=== PATIENT | female | born 1960 | race Caucasian/White ===

== ENCOUNTER 2025-03-22 12:42 | Emergency (ER) | payer MEDICARE, BC ==
[2025-03-22] MEDS: Ketorolac 30 MG/ML SDV IM ONE (13:02)
== END 2025-03-22 14:53 | disposition home or self-care (01) ==
LOC: MW.ED 12:42
DX: S82.201A Unspecified fracture of shaft of right tibia, initial encounter for closed fracture (principal); S82.401A Unspecified fracture of shaft of right fibula, initial encounter for closed fracture; Z75.3 Unavailability and inaccessibility of health-care facilities; X58.XXXA Exposure to other specified factors, initial encounter
CPT/HCPCS: 29505; 73590; 73600; 73620; 73700; 96372; 99284; J1885

== ENCOUNTER 2025-03-24 09:18 | Day surgery (SDC) | payer BC, MEDICARE ==
[~2025-03-24 09:18] MED LIST: Albuterol 0.083% 2.5 MG/3 ML Neb Soln NEB PRN; HYDROmorphone 1 MG/ML Syringe IVPUSH PRN; Metoclopramide 10 MG/2 ML SDV IVPUSH PRN; Morphine 2 MG/ML SYRINGE IVPUSH PRN; Naloxone 0.4 MG/ML SDV IVPUSH PRN; Ondansetron 4 MG/2 ML SDV IVPUSH PRN; Phenylephrine HCl In 0.9% NaCl 1 MG/10 ML Syringe IVPUSH PRN; fentaNYL 50 MCG/ML SDV IVPUSH PRN
[2025-03-24] MEDS: Lactated Ringers 1,000 ML IV SCH (10:14)
[2025-03-24] MEDS ORDERED: Bupivacaine 0.25% 30 ML SDV ONE (10:20)
[2025-03-24] MEDS ORDERED: Albuterol 0.083% 2.5 MG/3 ML Neb Soln NEB PRN (10:30)
[2025-03-24] MEDS ORDERED: Ondansetron 4 MG/2 ML SDV IVPUSH PRN (10:30)
[2025-03-24] MEDS ORDERED: Phenylephrine HCl In 0.9% NaCl 1 MG/10 ML Syringe IVPUSH PRN (10:30)
[2025-03-24] MEDS ORDERED: Morphine 2 MG/ML SYRINGE IVPUSH PRN (10:30)
[2025-03-24] MEDS ORDERED: HYDROmorphone 1 MG/ML Syringe IVPUSH PRN (10:30)
[2025-03-24] MEDS ORDERED: fentaNYL 50 MCG/ML SDV IVPUSH PRN (10:30)
[2025-03-24] MEDS ORDERED: Naloxone 0.4 MG/ML SDV IVPUSH PRN (10:30)
[2025-03-24] MEDS ORDERED: Metoclopramide 10 MG/2 ML SDV IVPUSH PRN (10:30)
[2025-03-24] MEDS ORDERED: fentaNYL 100 MCG/2 ML SDV ONE (10:35)
[2025-03-24] MEDS ORDERED: EPINEPHrine 1 MG/1 ML Amp ONE (10:35)
[2025-03-24] MEDS ORDERED: Ropivacaine 0.5% 5 MG/ML 30 ML SDV ONE (10:35)
[2025-03-24] MEDS ORDERED: propofoL 500 MG/50 ML 50 ML ONE (10:36)
[2025-03-24] MEDS ORDERED: dexmedeTOMIDine HCl 200 MCG/2 ML SDV ONE (10:38)
[2025-03-24] MEDS ORDERED: Sodium Chloride 0.9% 20 ML ONE (10:38)
[2025-03-24] MEDS ORDERED: ceFAZolin 2 GM in Water For Injection, Sterile 20 ML IVPUSH ONE (11:00)
[2025-03-24] MEDS ORDERED: Ketamine HCL/NACL, ISO-OSM 50 MG/5 ML Syringe ONE (11:16)
[2025-03-24] MEDS ORDERED: ceFAZolin 2 GM Vial ONE (11:24)
[2025-03-24] MEDS ORDERED: Lidocaine 2% 11 ML Jelly Filled Syringe ONE (11:49)
[2025-03-24] MEDS ORDERED: Phenylephrine HCl In 0.9% NaCl 1 MG/10 ML Syringe ONE (11:54)
[2025-03-24] MEDS: Acetaminophen/HYDROcodone 325-5 MG Tab PO ONE (14:06)
== END 2025-03-24 14:50 | disposition home or self-care (01) ==
LOC: MW.SDS 09:18
PROVIDERS: ATTEND Orthopaedic Surgery
DX: S82.871A Displaced pilon fracture of right tibia, initial encounter for closed fracture (principal); I10 Essential (primary) hypertension; Z79.899 Other long term (current) drug therapy; X58.XXXA Exposure to other specified factors, initial encounter
CPT/HCPCS: 27827; 76000; A9270; J0690; J2371; J2704; J2795; J3010; J7120; J0665; J3490